=== PATIENT | female | born 1990 | race Hispanic/Latino ===

== ENCOUNTER → 2021-06-28 | Outpatient (CLI) | payer OTHER | END | disposition home or self-care (01) | LOC: RAH 07:59 | PROVIDERS: ATTEND Specialist | DX: L68.0 Hirsutism (principal) | CPT/HCPCS: 76830 ==

== ENCOUNTER 2023-04-07 05:46 | Emergency (ER) | payer OTHER ==
[~2023-04-07] VITALS: Ht 152.4 cm; Wt 61.2 kg
[2023-04-07] MEDS ORDERED: 0.9%NACL 1000ML 2,000 ML IV ONE (06:30)
[2023-04-07] MEDS ORDERED: ONDANSETRON 4MG INJ IVP ONE (06:30)
[2023-04-07] MEDS ORDERED: DIPHENOXYLATE HCL/ATROPINE 2.5/0.025 MG TAB PO ONE (06:30)
[2023-04-07] MEDS ORDERED: ONDA-104 PO (07:08)
[2023-04-07] MEDS ORDERED: DIPH1TAB PO (07:08)
[2023-04-07 08:43] VITALS: BP 117/78; PULSE 70; RESP 16; O2SAT 99
== END 2023-04-07 08:44 | disposition home or self-care (01) ==
LOC: EDH 05:46
DX: K52.9 Noninfective gastroenteritis and colitis, unspecified (principal); E03.9 Hypothyroidism, unspecified
CPT/HCPCS: 99283; 96374; 96361; J7030; J2405